=== PATIENT | male | born 1960 | race Caucasian/White ===

== ENCOUNTER 2016-09-13 12:06 | Inpatient (IN) | payer OTHER ==
[2016-09-13] VITALS (14 sets, daily range): BP systolic 81–141; BP diastolic 64–80
[~2016-09-13] VITALS: Ht 175.3 cm; Wt 68.7 kg
[2016-09-13] MEDS ORDERED: DILTIAZEM IV PUSH 25 MG/5 ML VIAL. ONE (12:17)
[2016-09-13] MEDS ORDERED: DILTIAZEM IV PUSH 25 MG/5 ML VIAL. IVP ONE (12:30)
[2016-09-13] MEDS ORDERED: ENOXAPARIN ** NOTE DOSE ** SYRINGE SQ ONE (12:30)
[2016-09-13] MEDS ORDERED: IV NORMAL SALINE 1000ML BAG 1,000 ML IV ONE (12:30)
[2016-09-13] MEDS ORDERED: DILTIAZEM 125 MG in IV DEXTROSE 5% 100 ML IV PRN (12:30)
[2016-09-13 12:31] LABS: BASO % 1 % (0-3); EOS % 3 % (0-3); HEMATOCRIT 45.8 % (39.0-53.0); HEMOGLOBIN 14.8 g/dL (13.0-17.5); LYMPH # 1.9 x10^3/uL (1.0-4.8); LYMPH % 38 % (24-48); MEAN CORPUSCULAR HEMOGLOBIN 28 pg (25-35); MEAN CORPUSCULAR HGB CONC 32 g/dL (31-37); MEAN CORPUSCULAR VOLUME 87 fL (79-100); MONO % 9 % (0-9); NEUT % 49 % (31-73); PLATELET COUNT 159 x10^3/uL (140-400); RED BLOOD COUNT 5.28 x10^6/uL (4.30-5.70); RED CELL DISTRIBUTION WIDTH 14.5 % (11.5-14.5)
--- NOTE | 2016-09-13 12:40 | RAD ---
Portable chest, 09/13/2016: History: Shortness of breath No previous chest radiographs are available at this time for comparison purposes. The heart is at the upper limits of normal in size. There is moderate interstitial prominence in the lung bases. No consolidating infiltrate is seen. There is no evidence of pleural fluid. Moderate spurring is present in the spine. IMPRESSION: 1. Borderline cardiomegaly. 2. Moderate basilar interstitial prominence suggesting interstitial pulmonary edema versus fibrosis. Comparison with previous chest radiographs if available and/or radiographic follow-up is suggested
[2016-09-13 12:46] LABS: CALCIUM 8.9 mg/dL (8.5-10.1); CREATININE 0.8 mg/dL (0.7-1.3); POTASSIUM 4.4 mmol/L (3.5-5.1)
[2016-09-13 12:50] LABS: ALBUMIN 3.1 g/dL (3.4-5.0); ALBUMIN/GLOBULIN RATIO 0.9 (1.0-1.7); TOTAL BILIRUBIN 0.7 mg/dL (0.2-1.0); TOTAL PROTEIN 6.4 g/dL (6.4-8.2)
--- NOTE | 2016-09-13 12:51 | EKG ---
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
--- NOTE | 2016-09-13 12:55 | PHYS DOC ---
Past Medical History Past Medical History: No Pertinent History Past Surgical History: No Surgical History Additional Information: SMOKES 10 TO 15 BLACK & MILDS A DAY Alcohol Use: Occasionally Drug Use: None Adult General Chief Complaint Chief Complaint: SHORTNESS OF BREATH HPI HPI 55-year-old male with no significant past medical history presents with a two- week history of shortness of breath and dyspnea on exertion. He denies any chest pain shortness of breath or palpitations. He states he's been unable to work however he states this is very difficult secondary to shortness of breath. He states he does smoke 10-15 cigarettes daily. He's had no fever chills sweats cough or congestion. He states the only way his symptoms feel better is if he remains still. [] Review of Systems Review of Systems Constitutional: Denies fever or chills [] Eyes: Denies change in visual acuity, redness, or eye pain [] HENT: Denies nasal congestion or sore throat [] Respiratory: Per history of present illness [] Cardiovascular: No additional information not addressed in HPI [] GI: Denies abdominal pain, nausea, vomiting, bloody stools or diarrhea [] : Denies dysuria or hematuria [] Musculoskeletal: Denies back pain or joint pain [] Integument: Denies rash or skin lesions [] Neurologic: Denies headache, focal weakness or sensory changes [] Endocrine: Denies polyuria or polydipsia [] Current Medications Current Medications Current Medications Medications (Trade) Dose Ordered Sig/Katelyn Start Time Stop Time Status Last Admin Dose Admin Diltiazem HCl 20 mg 20 mg 1X ONCE 09/13/16 12:30 09/13/16 12:31 DC 09/13/16 12:25 20 MG Diltiazem HCl 25 mg 25 mg STK-MED ONCE 09/13/16 12:17 09/13/16 12:18 DC Diltiazem HCl/ Dextrose (Cardizem) 125 ml @ 0 mls/hr CONT PRN 09/13/16 12:30 09/13/16 12:30 5 MLS/HR Enoxaparin Sodium (Lovenox 80mg Syringe) 80 mg 1X ONCE 09/13/16 12:30 09/13/16 12:35 DC Sodium Chloride (Iv Sodium Chloride 0.9% 1000ml Bag) 1,000 ml @ 1,000 mls/hr 1X ONCE 09/13/16 12:30 09/13/16 13:29 09/13/16 12:23 1,000 MLS/HR Allergies Allergies Allergies Coded Allergies Type Severity Reaction Last Updated Verified No Known Drug Allergies 09/11/15 No Physical Exam Physical Exam Constitutional: Well developed, well nourished, no acute distress, non-toxic appearance. [] HENT: Normocephalic, atraumatic, bilateral external ears normal, oropharynx moist, no oral exudates, nose normal. [] Eyes: PERRLA, EOMI, conjunctiva normal, no discharge. [] Neck: Normal range of motion, no tenderness, supple, no stridor. [] Cardiovascular: Tachycardia irregularly irregular [] Lungs & Thorax: Bilateral breath sounds clear to auscultation [] Abdomen: Bowel sounds normal, soft, no tenderness, no masses, no pulsatile masses. [] Skin: Warm, dry, no erythema, no rash. [] Back: No tenderness, no CVA tenderness. [] Extremities: No tenderness, no cyanosis, no clubbing, ROM intact, no edema. [] Neurologic: Alert and oriented X 3, normal motor function, normal sensory function, no focal deficits noted. [] Psychologic: Affect normal, judgement normal, mood normal. [] Current Patient Data Vital Signs Vital Signs Date Time Temp Pulse Resp B/P Pulse Ox O2 Delivery O2 Flow Rate FiO2 09/13/16 12:25 161 134/90 09/13/16 12:09 98 14 96 Room Air 98.0 Lab Values Laboratory Tests Test 09/13/16 12:16 White Blood Count 5.0x10^3/uL (4.0-11.0) Red Blood Count 5.28x10^6/uL (4.30-5.70) Hemoglobin 14.8g/dL (13.0-17.5) Hematocrit 45.8% (39.0-53.0) Mean Corpuscular Volume 87fL (79-100) Mean Corpuscular Hemoglobin 28pg (25-35) Mean Corpuscular Hemoglobin Concent 32g/dL (31-37) Red Cell Distribution Width 14.5% (11.5-14.5) Platelet Count 159x10^3/uL (140-400) Neutrophils (%) (Auto) 49% (31-73) Lymphocytes (%) (Auto) 38% (24-48) Monocytes (%) (Auto) 9% (0-9) Eosinophils (%) (Auto) 3% (0-3) Basophils (%) (Auto) 1% (0-3) Neutrophils # (Auto) 2.5x10^3uL (1.8-7.7) Lymphocytes # (Auto) 1.9x10^3/uL (1.0-4.8) Monocytes # (Auto) 0.5x10^3/uL (0.0-1.1) Eosinophils # (Auto) 0.2x10^3/uL (0.0-0.7) Basophils # (Auto) 0.0x10^3/uL (0.0-0.2) Sodium Level 144mmol/L (136-145) Potassium Level 4.4mmol/L (3.5-5.1) Chloride Level 109mmol/L (98-107) H Carbon Dioxide Level 25mmol/L (21-32) Anion Gap 10 (6-14) Blood Urea Nitrogen 14mg/dL (8-26) Creatinine 0.8mg/dL (0.7-1.3) Estimated GFR (Cockcroft-Gault) 100.0 BUN/Creatinine Ratio 18 (6-20) Glucose Level 177mg/dL (70-99) H Calcium Level 8.9mg/dL (8.5-10.1) Total Bilirubin Pending Aspartate Amino Transferase (AST) Pending Alanine Aminotransferase (ALT) Pending Alkaline Phosphatase Pending Total Protein Pending Albumin Pending Albumin/Globulin Ratio Pending Ethyl Alcohol Level < 10mg/dL (0-10) Laboratory Tests 09/13/16 12:16 Laboratory Tests 09/13/16 12:16 EKG EKG [EKG: Atrial fibrillation with rapid ventricular response rate in the 160s] Radiology/Procedures Radiology/Procedures [] Impressions: PROCEDURE: CHEST AP ONLY Portable chest, 09/13/2016: History: Shortness of breath No previous chest radiographs are available at this time for comparison purposes. The heart is at the upper limits of normal in size. There is moderate interstitial prominence in the lung bases. No consolidating infiltrate is seen. There is no evidence of pleural fluid. Moderate spurring is present in the spine. IMPRESSION: 1. Borderline cardiomegaly. 2. Moderate basilar interstitial prominence suggesting interstitial pulmonary edema versus fibrosis. Comparison with previous chest radiographs if available and/or radiographic follow-up is suggested Course & Med Decision Making Course & Med Decision Making Pertinent Labs and Imaging studies reviewed. (See chart for details) [ED course: Evaluation reveals 55-year-old male in mild to moderate respiratory distress secondary to an underlying atrial fibrillation. His atrial fibrillation with rapid ventricular response was treated with Cardizem 20 mg IV bolus and followed by a Cardizem drip at 5 mg per hour. This did decrease his rate didn't significantly reduce his symptomology. I spoke with Dr. Steph bach who agreed to accept the patient for admission. We will consult cardiology to help with the management of this patient. CRITICAL CARE time was 30 minutes - time exclusive of any procedures performed. Care included medical management, x-ray/lab interpretation, discussions with the patient and their family as well as appropriate medical consultants.] Dragon Disclaimer Dragon Disclaimer This electronic medical record was generated, in whole or in part, using a voice recognition dictation system. Departure Departure Impression: Primary Impression: Atrial fibrillation with rapid ventricular response Admitting Physician: Andrea Drummond Condition: GUARDED Referrals: BLAYNE ESCOBAR MD (PCP) TRAVIS SOLORZANO DO Sep 13, 2016 12:55
[2016-09-13] MEDS ORDERED: ONDANSETRON PF 4 MG/2 ML VIAL. IV PRN (13:00)
[2016-09-13] MEDS ORDERED: FUROSEMIDE 40 MG/4 ML VIAL IVP ONE (13:00)
[2016-09-13 13:07] LABS: INR 1.1 (0.8-1.1); PROTHROMBIN TIME PATIENT 13.8 SEC (11.7-14.0)
--- NOTE | 2016-09-13 14:08 | ACF ---
Admission Forms Criteria ATRIAL FIBRILLATION Clinical Indications for Admission to Inpatient Care (Place 'X' for any and all applicable criteria): Admission indicated for ANY ONE of the following(1)(2)(3)(4)(5) : [ ]I. Myocardial ischemia [X ]II. Dyspnea or hypoxemia [X ]III. Hemodynamic instability [ ]IV. Heart failure (e.g., pulmonary edema) (7) [ ]V. New-onset (less than 48 hours) atrial fibrillation with high risk for causing complications secondary to comorbidities (eg, symptomatic heart failure ) [ ]. Altered mental status [ ]VII. Syncope [ ]VIII. Patient has implantable cardioverter defibrillator that has fired more than once within past 24hr or needs immediate adjustment of settings that cannot be done other than in inpatient setting. (8) [ ]IX. Suspected accessory pathway (e.g., Neaog-Lhqqxdvuu-Lelhr syndrome) on ECG [ ]X. Recent systemic thromboembolism (eg, stroke) [ ]XI. Medication toxicity (e.g., digitalis) causing arrhythmia(9) [ ]XII. Underlying medical condition that necessitates inpatient care (e.g., thyrotoxicosis, pneumonia) (10) [ ]XIII. Continuous ECG monitoring is required for condition causing arrhythmia (e.g., severe hyperkalemia, hypokalemia, acid-base disturbance).(11)(12)(13) [ ]XIV. Initiation of antiarrhythmic drug therapy is needed in patient at high risk of adverse effects as indicated by ANY ONE of the following: [ ]a) Significant structural heart disease (e.g., reduced ejection fraction, congenital heart disease, valvular heart disease) [ ]b) Prolonged QT interval [ ]c) Underlying sinus node or atrioventricular conduction disturbances [ ]d) Need for treatment with antiarrhythmic drugs that have significant proarrhythmic potential (e.g., dofetilide, sotalol, procainamide) [ ]e) Patient whose sinus rhythm has never been observed on ECG [ ]XV. Intolerable symptoms despite optimal outpatient treatment [ ]XVI. Elective or urgent cardioversion that cannot be performed on outpatient basis or during observation care. [A] (Use also Atrial Fibrillation: Observation Care ) as appropriate.(14) [ ]XVII.Contraindications and/or Inappropriate clinical situations for Observational Care in patients with Atrial Fibrillation, when ANY ONE of the following is required: [ ]a) Patient with High risk of cardiac embolism (e.g, patients with previous cardiac embolism, LVEF < 40%, age >75 and patients with prosthetic valve) 18 [ ]b) Patient with Moderate risk including DM patient, CAD and patient aged 65-75 18 [ ]c) Patient with any change in cardiac biomarker especially troponin should be managed as high risk in an inpatient setting 19 [ ]d) Physician judgement irrespective of ECG and other diagnostic findings 20 [ ]XVIII.General contraindications and/or Inappropriate clinical situations for Observational Care in patients with Atrial Fibrillation, when ANY ONE of the following is required: [ ]a) Prediction of prolongation of LOS based on ANY ONE of the following may be considered as a contraindication for observational care 2, 3, 4, 5, 6, 7, 8, 9, 10, 11 [ ]i) Age > 65 yrs. [ ]ii) Patient arriving by ambulance [ ]iii) Patient with high acuity [ ]iv) Patient requiring vital sign monitoring [ ]v) Patient on IV medication [ ]b) Systolic blood pressures 180mmHg 3,12 [ ]c) Patient with altered mental status including delirium and other alteration of consciousness3 [ ]d) Patient whose discharge disposition will be to a care home home or rehabilitation home should not be managed in Emergency Department Observation Unit. CMS rule requires 3 days hospital stay before such placement.3,13 [ ]e) Patient with failure to thrive due to broad array of etiologies 3,16,17 [ ]f) Inability to ambulate 3,14 Extended stay beyond goal length of stay may be needed for (1)(25)(26): [ ]a) Unstable comorbidities [ ]b) Persistently uncontrolled atrial fibrillation or other arrhythmias [ ]c) Acute thromboembolic event (e.g., stroke, limb ischemia) [ ]d) Need for inpatient attainment of full anticoagulation The original [employer] content created by [employer] has been revised. The portions of the content which have been revised are identified through the use of italic text or in bold, and [employer] has neither reviewed nor approved the modified material. All other unmodified content is copyright [employer]. Please see references footnoted in the original [facility] edition 2016 Admission Criteria Met?: Yes ZOHAIB BAKER Sep 13, 2016 14:08
[2016-09-13 14:42] LABS: BILIRUBIN,URINE NEGATIVE (NEG); GLUCOSE,URINE 250 mg/dL (NEG); NITRITE,URINE NEGATIVE (NEG); PROTEIN,URINE NEGATIVE (NEG-TRACE); UROBILINOGEN,URINE 0.2 mg/dL (0.2 mg/dL)
[2016-09-13 14:44] LABS: BARBITURATES NEG (NEG); BENZODIAZEPINES NEG (NEG); CANNABINOIDS NEG (NEG); COCAINE NEG (NEG); METHADONE NEG (NEG); OPIATES NEG (NEG); PHENCYCLIDINE NEG (NEG)
[2016-09-13 14:52] LABS: ETHANOL, URINE NEG (NEG)
[2016-09-13 15:11] LABS: BACTERIA,URINE 0 /HPF (0-FEW); RBC,URINE OCC /HPF (0-2); WBC,URINE OCC /HPF (0-4)
[2016-09-14] VITALS (15 sets, daily range): BP systolic 95–123; BP diastolic 56–84
--- NOTE | 2016-09-14 09:10 | PDOC ---
Provider Note Provider Note [id number] BLAYNE ESCOBAR MD Sep 14, 2016 09:10
--- NOTE | 2016-09-14 09:10 | PDOC2 ---
CARDIAC CONSULT DATE OF CONSULT Date of Consult DATE: 09/14/16 TIME: 09:09 REASON FOR CONSULT Reason for Consult: atrial fib with RVR REFERRING PHYSICIAN Referring Physician: Dr. Arnie Bradley SOURCE Source: Chart review, Patient HISTORY OF PRESENT ILLNESS HISTORY OF PRESENT ILLNESS 55 year old male who presented to ER with 2 week history of dyspnea that is worse with exertion. No associated chest pain or pressure, palpitations , dizziness, lightheadedness or lower extremity edema. Found to be in atrial fib with RVR in ER and bolused with IV diltiazem and then started on gtt. Also given IV furosemide as NT-proBNP elevated and CXR suggestive of pulmonary edema. Improved rate control overnight on diltiazem. TSH found to be < 0.007. Reason for Visit: atrial fib PAST MEDICAL HISTORY Cardiovascular: No pertinent hx Pulmonary: No pertinent hx CENTRAL NERVOUS SYSTEM: Other (none) GI: No pertinent hx Heme/Onc: No pertinent hx Hepatobiliary: No pertinent hx Psych: No pertinent hx Musculoskeletal: Other (none) Rheumatologic: No pertinent hx Infectious disease: No pertinent hx ENT: No pertinent hx Renal/: No pertinent hx Endocrine: No pertinent hx Dermatology: No pertinent hx PAST SURGICAL HISTORY Past Surgical History: No pertinent history FAMILY HISTORY Family History: Coronary Artery Disease (brother with PR - age 60), Diabetes SOCIAL HISTORY Social History smokes 10 cigars/day; 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 ALCOHOL: other (beer weekly) Drugs: Other (remote history ) CURRENT MEDICATIONS CURRENT MEDICATIONS Current Medications Medications (Trade) Dose Ordered Sig/Katelyn Route PRN Reason Start Time Stop Time Status Last Admin Dose Admin Diltiazem HCl/ Dextrose (Cardizem) 125 ml @ 0 mls/hr CONT PRN IV SEE I/O RECORD 09/13/16 12:30 09/14/16 09:06 DC 09/13/16 12:30 Diltiazem HCl 20 mg 20 mg 1X ONCE IVP 09/13/16 12:30 09/13/16 12:31 DC 09/13/16 12:25 Sodium Chloride (Iv Sodium Chloride 0.9% 1000ml Bag) 1,000 ml @ 1,000 mls/hr 1X ONCE IV 09/13/16 12:30 09/13/16 13:29 DC 09/13/16 12:23 Enoxaparin Sodium (Lovenox 80mg Syringe) 80 mg 1X ONCE SQ 09/13/16 12:30 09/13/16 12:35 DC 09/13/16 12:58 Furosemide (Lasix) 40 mg 1X ONCE IVP 09/13/16 13:00 09/13/16 13:10 DC 09/13/16 13:43 ALLERGIES ALLERGIES: Coded Allergies: No Known Drug Allergies (Unverified , 09/11/15) ROS Review of System 14 point review completed with pertinent positives in HPI PHYSICAL EXAM General: Alert, Oriented X3, Cooperative, No acute distress, Other (appears unkempt) HEENT: Atraumatic, PERRLA Lungs: Other (basilar crackles) Heart: Normal S1, Normal S2, Other (IRRR; tele: atrial fib - rates in the 90s) Extremities: Normal pulses, Other (edema left hand) Skin: No rashes Psych/Mental Status: Mental status NL, Mood NL MUSCULOSKELETAL: No deformity VITALS VITALS Vital Signs Date Time Temp Pulse Resp B/P Pulse Ox O2 Delivery O2 Flow Rate FiO2 09/14/16 07:53 Nasal Cannula 4.0 09/14/16 06:19 100 106/64 94 09/14/16 04:07 98.5 98.5 09/14/16 03:32 20 LABS Lab: Laboratory Tests Test 09/13/16 12:16 09/13/16 13:58 09/13/16 18:45 09/14/16 01:24 White Blood Count 5.0x10^3/uL (4.0-11.0) Red Blood Count 5.28x10^6/uL (4.30-5.70) Hemoglobin 14.8g/dL (13.0-17.5) Hematocrit 45.8% (39.0-53.0) Mean Corpuscular Volume 87fL (79-100) Mean Corpuscular Hemoglobin 28pg (25-35) Mean Corpuscular Hemoglobin Concent 32g/dL (31-37) Red Cell Distribution Width 14.5% (11.5-14.5) Platelet Count 159x10^3/uL (140-400) Neutrophils (%) (Auto) 49% (31-73) Lymphocytes (%) (Auto) 38% (24-48) Monocytes (%) (Auto) 9% (0-9) Eosinophils (%) (Auto) 3% (0-3) Basophils (%) (Auto) 1% (0-3) Neutrophils # (Auto) 2.5x10^3uL (1.8-7.7) Lymphocytes # (Auto) 1.9x10^3/uL (1.0-4.8) Monocytes # (Auto) 0.5x10^3/uL (0.0-1.1) Eosinophils # (Auto) 0.2x10^3/uL (0.0-0.7) Basophils # (Auto) 0.0x10^3/uL (0.0-0.2) Prothrombin Time 13.8SEC (11.7-14.0) Prothromb Time International Ratio 1.1 (0.8-1.1) D-Dimer (Sania) 1.18ug/mlFEU (0.00-0.50) Sodium Level 144mmol/L (136-145) Potassium Level 4.4mmol/L (3.5-5.1) Chloride Level 109mmol/L (98-107) Carbon Dioxide Level 25mmol/L (21-32) Anion Gap 10 (6-14) Blood Urea Nitrogen 14mg/dL (8-26) Creatinine 0.8mg/dL (0.7-1.3) Estimated GFR (Cockcroft-Gault) 100.0 BUN/Creatinine Ratio 18 (6-20) Glucose Level 177mg/dL (70-99) Calcium Level 8.9mg/dL (8.5-10.1) Total Bilirubin 0.7mg/dL (0.2-1.0) Aspartate Amino Transf (AST/SGOT) 35U/L (15-37) Alanine Aminotransferase (ALT/SGPT) 32U/L (16-63) Alkaline Phosphatase 147U/L (46-116) Troponin I Quantitative 0.020ng/mL (0.000-0.055) 0.037ng/mL (0.000-0.055) 0.028ng/mL (0.000-0.055) AG-Voj-V-Type Natriuretic Peptide 3688pg/mL (0-124) Total Protein 6.4g/dL (6.4-8.2) Albumin 3.1g/dL (3.4-5.0) Albumin/Globulin Ratio 0.9 (1.0-1.7) Ethyl Alcohol Level < 10mg/dL (0-10) Urine Collection Type Unknown Urine Color Yellow Urine Clarity Clear Urine pH 5.0 Urine Specific [place] 1.015 Urine Protein Negativemg/dL (NEG-TRACE) Urine Glucose (UA) 250mg/dL (NEG) Urine Ketones (Stick) Negativemg/dL (NEG) Urine Blood Negative (NEG) Urine Nitrite Negative (NEG) Urine Bilirubin Negative (NEG) Urine Urobilinogen Dipstick 0.2mg/dL (0.2 mg/dL) Urine Leukocyte Esterase Negative (NEG) Urine RBC Occ/HPF (0-2) Urine WBC Occ/HPF (0-4) Urine Squamous Epithelial Cells None/LPF Urine Bacteria 0/HPF (0-FEW) Urine Mucus Slight/LPF Urine Opiates Screen Neg (NEG) Urine Methadone Screen Neg (NEG) Urine Barbiturates Neg (NEG) Urine Phencyclidine Screen Neg (NEG) Urine Amphetamine/Methamphetamine Neg (NEG) Urine Benzodiazepines Screen Neg (NEG) Urine Cocaine Screen Neg (NEG) Urine Cannabinoids Screen Neg (NEG) Urine Ethyl Alcohol Neg (NEG) Thyroid Stimulating Hormone (TSH) < 0.007uIU/mL (0.358-3.74) IMAGES IMAGES CXR: 1. Borderline cardiomegaly. 2. Moderate basilar interstitial prominence suggesting interstitial pulmonary edema versus fibrosis. Comparison with previous chest radiographs if available and/or radiographic follow-up is suggested EKG EKG initial EKG was SR; then atrial fib with RVR ASSESSMENT/PLAN ASSESSMENT/PLAN 1. atrial fib with RVR in the setting of hyperthyroidism rate control with diltiazem with conversion to atenolol pending OAC with Eliquis for stroke prevention until hyperthyroidism well treated and pt converts back to SR echo pending to evaluate for valvular disease check Mg 2. acute CHF likely rate related given furosemide in ER still with crackles - furosemide 20 mg X 1 today 2. hyperthyroidism evaluation in progress tapazole to be started 3. elevated D-Dimer suspect related to rate echo will evaluate RV size and pressures - if elevated - recommend CT scan of chest to evaluate for pulmonary embolus 4. tobacco abuse 10 cigars per day Problems: FLORENTINO OAKES APRN Sep 14, 2016 09:10
[2016-09-14] MEDS ORDERED: DILTIAZEM 125 MG in IV DEXTROSE 5% 100 ML IV PRN (09:15)
--- NOTE | 2016-09-14 09:48 | HP ---
ADMIT DATE: 09/13/2016 CHIEF COMPLAINT: Shortness of breath. HISTORY OF PRESENT ILLNESS: A 55-year-old white male with no significant medical history, has had increasing shortness of breath over the last 2 weeks. He is unaware of rapid heartbeat or irregular heartbeat, weight loss, fever or diarrhea, tremors or any other specific symptoms. He was found to have an atrial fibrillation with rapid response in the ER and TSH was requested after admission and was found to be very low. He has been on IV Cardizem with relatively low dose control and the rate, but still in atrial fibrillation. PAST HISTORY: Seen one year ago and had an elevated testosterone level, but he denied exogenous use and etiology was never found and not repeated. MEDICATIONS: None. ALLERGIES: None. SURGERY: None. SOCIAL HISTORY: He smokes 10 cigars a day. He is a very light drinker. He is employed by [employer]. He is . FAMILY HISTORY: Unremarkable for cardiovascular or cancer. REVIEW OF SYSTEMS: No other complaints. Denies weight loss, etc. OBJECTIVE: ENT: No proptosis or exophthalmos is noted. Eyes, ears and pharynx normal. NECK: Revealed no palpable thyroid enlargement, masses or nodes. LUNGS: Clear. CARDIOVASCULAR: Irregular rate, rate is about 90. No murmur or S3 is heard. ABDOMEN: Soft, benign and nontender. EXTREMITIES: Good pedal and radial pulses. Mild clubbing. No tremor is noted. NEUROLOGIC AND PHYSIOLOGIC: No tremors, nonfocal, oriented x 4. Gait not tested. ASSESSMENT: Atrial fibrillation, rapid ventricular response in a smoker. He appears to be hyperthyroid, etiology and duration of which is unknown. This is likely the etiology for the atrial fibrillation. PLAN: Thyroid scan and uptake to assess for Graves' disease versus acute thyroiditis. We will start atenolol and methimazole after scans are done. BLAYNE ESCOBAR MD DR: LENIN/hanna JOB#: [id number] / [id number]
[2016-09-14 09:55] LABS: FREE T4 5.04 ng/dL (0.76-1.46)
[2016-09-14] MEDS ORDERED: MAGNESIUM SULFATE 2GM 50 ML IV ONE (10:00)
[2016-09-14] MEDS: FUROSEMIDE 20 MG/2 ML VIAL IVP SCH (10:31)
[2016-09-14] MEDS: ATENOLOL 50 MG TABLET PO SCH (10:34)
[2016-09-14] MEDS: APIXABAN 5 MG TABLET. PO SCH ×2 (10:40→21:19)
[2016-09-14] MEDS ORDERED: METHIMAZOLE 10 MG TABLET PO SCH (14:00)
--- NOTE | 2016-09-14 14:13 | CARD ---
APPROVED REPORT EXAM: Two-dimensional and M-mode echocardiogram with Doppler and color Doppler. Other Information Quality : Good Rhythm : Atrial Fibrillation INDICATION Atrial Fibrillation 2D DIMENSIONS RVDd2.9 (2.9-3.5cm)Left Atrium(2D)4.8 (1.6-4.0cm) IVSd1.3 (0.7-1.1cm)Aortic Root(2D)3.1 (2.0-3.7cm) LVDd5.3 (3.9-5.9cm)LVOT Diameter2.0 (1.8-2.4cm) PWd1.3 (0.7-1.1cm)LVDs4.3 (2.5-4.0cm) FS (%) 20.0 % Aortic Valve AoV Peak Valentino.164.8cm/sAoV VTI22.7cm AO Peak GR.10.9mmHgLVOT VTI 14.38cm AO Mean GR.6mmHgAVA (VTI)2.00cm2 Mitral Valve MV E Exyqzaue680.2cm/sMV DECEL [id number] TDI Lateral E' P. V11.78cm/sMedial E' P. V7.27cm/s E/Lateral E'12.2E/Medial E'19.8 Tricuspid Valve TR P. Yzeqcjdt702wy/sRAP QJKVDSBZ18igMm TR Peak Gr.97ieHrFCLV84ngGy LEFT VENTRICLE The left ventricle is normal size. There is mild concentric left ventricular hypertrophy. Left ventri cular systolic function is low normal to mildly decreased. The Ejection Fraction is 45-50%. There are no regional wall motion abnormalities. RIGHT VENTRICLE The right ventricle is normal size. The right ventricular systolic function is normal. ATRIA The left atrium is mildly dilated. The right atrium is mildly dilated. The interatrial septum is inta ct with no evidence for an atrial septal defect or patent foramen ovale as noted on 2-D or Doppler im aging. AORTIC VALVE The aortic valve is calcified but opens well. Doppler and Color Flow revealed no significant aortic r egurgitation. There is no significant aortic valvular stenosis. MITRAL VALVE The mitral valve is calcified but opens well. There is no evidence of mitral valve prolapse. There is no mitral valve stenosis. Doppler and Color-flow revealed mild mitral regurgitation. TRICUSPID VALVE The tricuspid valve is normal in structure and function. Doppler and Color Flow revealed mild tricusp id regurgitation. The PA pressure was estimated at 46 mmHg. There is no tricuspid valve stenosis. PULMONIC VALVE The pulmonary valve is normal in structure and function. Doppler and Color Flow revealed trace pulmon ic valvular regurgitation. There is no pulmonic valvular stenosis. GREAT VESSELS The aortic root is normal in size. The ascending aorta is not well seen. The IVC is dilated and colla pses <50% with inspiration. PERICARDIAL EFFUSION There is a left pleural effusion. There is no evidence of significant pericardial effusion. Critical Notification Critical Value: No <Conclusion> The left ventricle is normal size. Left ventricular systolic function is low normal to mildly decreased. The Ejection Fraction is 45-50%. There is mild concentric left ventricular hypertrophy. There are no regional wall motion abnormalities. The right atrium is mildly dilated. There is no significant aortic valvular stenosis. Doppler and Color Flow revealed no significant aortic regurgitation. Doppler and Color-flow revealed mild mitral regurgitation. Doppler and Color Flow revealed mild tricuspid regurgitation. The PA pressure was estimated at 46 mmHg.
[2016-09-14] MEDS ORDERED: CONTRAST GIVEN MC PRN (16:00)
[2016-09-14] MEDS ORDERED: IOHEXOL 240 MG/ML 50ML VIAL. PO ONE (16:00)
[2016-09-14] MEDS ORDERED: IOHEXOL 300 MG/ML 75 ML VIAL IV ONE (16:15)
--- NOTE | 2016-09-14 18:20 | RAD ---
PROCEDURE CTA of the chest with contrast (pulmonary embolism protocol) 09/14/2016 HISTORY Shortness of breath for 2 weeks. TECHNIQUE After the intravenous administration of 75 cc of Omnipaque 300, contiguous, 0.625 millimeter axial sections were obtained through the chest. 2 millimeter reconstructed axial and 3D MIP sagittal and coronal reconstructed images were obtained. One or more of the following individualized dose reduction techniques were utilized for this study: 1. Automated exposure control. 2. Adjustment of the mA and/or kV according to patient size. 3. Use of iterative reconstruction technique. FINDINGS No filling defect is seen within the major branches of either pulmonary artery. There is no CT evidence of pulmonary embolism. The heart is mildly enlarged. Mild atherosclerotic calcification of the thoracic aorta and its branches is noted. The thoracic aorta tapers normally. Scattered coronary artery calcifications are seen. Calcified left hilar and mediastinal lymph nodes are noted. Enlarged mediastinal lymph nodes are seen which measure 1 centimeter to 2.5 centimeters in size. There are small to moderate-sized bilateral pleural effusions, right greater than left. Bilateral lower lobe atelectasis and/or infiltrate, right greater than left is seen. Subsegmental atelectasis is seen involving the inferior aspect of the lingula and right middle lobe. No pneumothorax is noted. IMPRESSION 1. There is no CT evidence of pulmonary embolism. 2. Cardiomegaly with small to moderate-sized bilateral pleural effusions, right greater than left. Bilateral lower lobe atelectasis and/or infiltrate, right greater than left is seen. Electronically signed by: Brad Bucio MD (Sep 14, 2016 18:18:52)
[2016-09-15 04:00] VITALS: BP 128/77
[2016-09-15 08:00] VITALS: BP 125/77
[2016-09-15] MEDS ORDERED: ANTI-COAG MONITOR BY PHARMACY. MC PRN (08:15)
[2016-09-15] MEDS: APIXABAN 5 MG TABLET. PO SCH (08:36)
[2016-09-15] MEDS: FUROSEMIDE 20 MG/2 ML VIAL IVP SCH (08:36)
[2016-09-15] MEDS: ATENOLOL 50 MG TABLET PO SCH (08:42)
--- NOTE | 2016-09-15 09:04 | PDOC ---
Provider Note Provider Note rate 100-133 irreg- vss- both T4/T3 very high, cons w/ graves- thyroid scan today , then start methimazole- increase atenolol now re rate control- echo noted BLAYNE ESCOBAR MD Sep 15, 2016 09:04
[2016-09-15] MEDS ORDERED: ATENOLOL 50 MG TABLET PO ONE (09:30)
--- NOTE | 2016-09-15 11:36 | PDOC ---
SARITHA SANTANA RAIL SIGNAL MECHANIC 09/15/16 1136: CARDIO Progress Notes Date and Time Date of Service 09/15/2016 Time of Evaluation 1040 Subjective Subjective: No Chest Pain, No shortness of breath, No Palpitations, No Dizziness, Other (feels better today) Vitals Vitals Vital Signs Date Time Temp Pulse Resp B/P Pulse Ox O2 Delivery O2 Flow Rate FiO2 09/15/16 10:05 97 125/77 09/15/16 08:00 Room Air 09/15/16 08:00 98.5 19 98 98.5 09/15/16 04:00 3.0 Weight Weight [ ] Input and Output Intake and Output Intake and Output 09/15/16 07:00 Intake Total 2207 ml Output Total 1875 ml Balance 332 ml Intake Oral 2145 ml IV Total 62 ml Output Urine Total 1875 ml Physical Exam HEENT: Neck Supple W Full Motion Chest: Symmetric LUNGS: Other (faint bibasilar crackles) Heart: S1S2, irregularly irregular Abdomen: Soft N/T Extremities: No Calf Tenderness, Other (1+ bilateral LE pitting edema) Neurology: alert, oriented, follow commands Assessment Assessment 1. atrial fib with RVR in the setting of hyperthyroidism Rate controlled with atenolol. Will continue with rate control for now till thyroid dysfunction is corrected. Once this is corrected then will consider for outpt cardioversion. Will hold eliquis if thyroid biopsy is warranted otherwise continue. OAC with Eliquis for stroke prevention until hyperthyroidism well treated and pt converts back to SR 2. Acute systolic CHF Likely induced by above. TTE noted with mild LV systolic dysfunction, no wall motion abnormalities with EF of 45-45% with mild TR/MR and mod pulmonary HTN Clinically compensated. Convert IV lasix to PO. BMP Mg today. 3. Hyperthyroidism Thyroid scan pending tapazole to be started after scan per PCP 4. Elevated D-Dimer Notable for supporting symptoms of PE with moderate clinical probability CTA performed and reviewed. No notable PE. 5. CAD Noted via CT are cardiomegaly, mild atherosclerotic calcification of the thoracic aorta and its branches and scattered coronary artery calcifications are seen. Will consider for outpt stress test Avoid ASA for now as this may increase T4 to T3 conversion. Continue BB and start on low dose lisinopril. Obtain lipid panel. Continue with secondary prevention. 6. Mediastinal lymphadenopathy via CTA Enlarged mediastinal lymph nodes are seen which measure 1 centimeter to 2.5 centimeters in size. Per PCP 7. Likely undiagnosed COPD with tobacco abuse 10 cigars per day Smoking cessation JUAQUIN TOSCANO MD 09/15/16 1532: CARDIO Progress Notes Plan Plan Patient seen and examined. Agree with nurse practitioner. No acute events overnight. Patient is currently being evaluated for hyperthyroidism Cardiac examination reveals irregular heart rates with bilateral end expiratory wheezing. Laboratory studies reviewed. Medications reviewed. Continue supportive care from a cardiovascular perspective. We will hold his anticoagulation in case he has a nodule that needs to be biopsied but if his thyroid scan reveals Graves' disease then we will continue his anticoagulation. We will follow-up with him tomorrow. Anticipate outpatient evaluation after control of hyperthyroidism for consideration of TAHMINA/cardioversion if he is not converted to sinus rhythm after treatment of hyperthyroidism. SARITHA SANTANA APRN Sep 15, 2016 11:36 JUAQUIN TOSCANO MD Sep 15, 2016 15:32
[2016-09-15 12:00] VITALS: BP 128/90
[2016-09-15 12:28] LABS: CALCIUM 8.7 mg/dL (8.5-10.1); CREATININE 0.7 mg/dL (0.7-1.3); GFR 116.7; MAGNESIUM 1.8 mg/dL (1.8-2.4); POTASSIUM 4.3 mmol/L (3.5-5.1)
[2016-09-15 12:34] LABS: CHOLESTEROL/HDL RATIO 2.9
--- NOTE | 2016-09-15 14:01 | RAD ---
24 hour I-131 uptake and scan, 09/15/2016: History: Hyperthyroidism The 24-hour I-131 uptake is 48.7% of the administered dose. That value is above the upper limits of normal 35%. Imaging of the gland was performed following IV injection of 15 mCi of technetium 99m pertechnetate. The gland appears to be mildly enlarged in a symmetric pattern. No hot or cold thyroid nodule is seen. IMPRESSION: Diffuse hyperfunctioning thyroid gland compatible with Graves' disease.
[2016-09-15 15:00] VITALS: BP 115/75
[2016-09-15] MEDS ORDERED: METHIMAZOLE 10 MG TABLET PO SCH (15:15)
[2016-09-15] MEDS ORDERED: METHIMAZOLE 10 MG TABLET PO ONE (16:00)
[2016-09-15] MEDS: METHIMAZOLE 10 MG TABLET PO SCH (17:59)
[2016-09-15 19:35] VITALS: BP 128/83
[2016-09-15 23:40] VITALS: BP 108/63
[2016-09-16 03:48] VITALS: BP 115/66
[2016-09-16 07:00] VITALS: BP 123/84
--- NOTE | 2016-09-16 09:14 | PDOC ---
Provider Note Provider Note vss, breathing better- rate [id number], af- exam same- on tapazole now as scan supports graves etiology- only jennifer 50 mg atenolo 09/15 despite 100 mg order, 100 mg today, likely dc in am if stable to follow labs as op- likely will convert to sr w/ tx BLAYNE ESCOBAR MD Sep 16, 2016 09:14
[2016-09-16] MEDS: LISINOPRIL 2.5 MG TABLET PO SCH (09:18)
[2016-09-16] MEDS: FUROSEMIDE 40 MG TABLET PO SCH (09:18)
[2016-09-16] MEDS: ATENOLOL 50 MG TABLET PO SCH (09:19)
[2016-09-16] MEDS: METHIMAZOLE 10 MG TABLET PO SCH ×3 (09:19→16:50)
[2016-09-16] MEDS: APIXABAN 5 MG TABLET. PO SCH ×2 (09:19→21:29)
[2016-09-16 10:53] VITALS: BP 120/83
--- NOTE | 2016-09-16 12:21 | PDOC ---
SARITHA SANTANA YEAST MAKER 09/16/16 1221: CARDIO Progress Notes Date and Time Date of Service 09/16/2016 Time of Evaluation 1000 Subjective Subjective: No Chest Pain, No Palpitations, No Dizziness, Other (still has episodes of PND; orthopnea otherwise no SOA at rest and going to the bathroom. ) Vitals Vitals Vital Signs Date Time Temp Pulse Resp B/P Pulse Ox O2 Delivery O2 Flow Rate FiO2 09/16/16 10:53 97.4 95 24 120/83 94 Room Air 97.4 Weight Weight [ ] Input and Output Intake and Output Intake and Output 09/16/16 07:00 Intake Total 500 ml Output Total 200 ml Balance 300 ml Intake Oral 500 ml Output Urine Total 200 ml # Voids 4 Physical Exam HEENT: Neck Supple W Full Motion Chest: Symmetric LUNGS: Other (bibasilar crackles) Heart: S1S2, irregularly irregular Abdomen: Soft N/T Extremities: No Calf Tenderness, Other (2+ bilateral LE pitting edema) Neurology: alert, oriented, follow commands Assessment Assessment 1. atrial fib with RVR in the setting of hyperthyroidism Rate controlled with atenolol at 90s with noted episodic bursts in the 120- 130s Will continue with rate control for now till thyroid dysfunction is corrected. Currently on high dose atenolol, will start on low dose cardizem IR temporarily for better control. NOAC with Eliquis for stroke prevention until hyperthyroidism is well treated and pt converts back to SR If no spontaneous conversion then will consider for outpt cardioversion. 2. Acute systolic CHF Mild symptoms overnight notable for orthopnea and PND otherwise currently no SOA. TTE noted with mild LV systolic dysfunction, no wall motion abnormalities with EF of 45-45% with mild TR/MR and mod pulmonary HTN CXR today. BMP. Continue with po lasix and will provide extra IV dose today. 3. Hyperthyroidism Thyroid scan compatible with Graves disease. Further w/u per PCP. tapazole has been restarted. 4. CAD Noted via CT are cardiomegaly, mild atherosclerotic calcification of the thoracic aorta and its branches and scattered coronary artery calcifications are seen. Will consider for outpt stress test Avoid ASA for now as this may increase T4 to T3 conversion. Continue BB and low dose lisinopril. Lipids on goal, no statin at this time. Monitor LFTs as outpt in relation to tapazole. Encourage to avoid ETOH. Continue with secondary prevention. 5. Mediastinal lymphadenopathy via CTA Enlarged mediastinal lymph nodes are seen which measure 1 centimeter to 2.5 centimeters in size. Per PCP 6. Likely undiagnosed COPD with tobacco abuse 10 cigars per day Smoking cessation JUAQUIN TOSCANO MD 09/16/16 1807: CARDIO Progress Notes Plan Plan Patient seen and examined. Case discussed with her practitioner. No acute events overnight. Continues to have paroxysmal bursts of rapid atrial fibrillation. No significant changes on cardio pulmonary examination. Labs reviewed and thyroid testing consistent with Graves. Continue supportive care from a cardiovascular perspective. Outpatient evaluation in 4 weeks. SARITHA SANTANA APRN Sep 16, 2016 12:21 JUAQUIN TOSCANO MD Sep 16, 2016 18:07
[2016-09-16 13:36] LABS: CALCIUM 8.6 mg/dL (8.5-10.1); CREATININE 0.8 mg/dL (0.7-1.3); POTASSIUM 4.2 mmol/L (3.5-5.1)
[2016-09-16] MEDS: DILTIAZEM HCL 30 MG TABLET PO SCH ×2 (13:53→21:28)
--- NOTE | 2016-09-16 13:54 | RAD ---
Indication: Tachycardia. Time of exam 1331 hours. Correlation is made with prior chest from 09/13/2016. The heart size is stable. Congestive changes have improved somewhat although there are small bilateral pleural effusions. Interstitial infiltrates have resolved. There is no pneumothorax. Impression: Resolution of interstitial edema and congestive change apart from some small bilateral pleural effusions when compared with exam from 3 days earlier.
[2016-09-16] MEDS ORDERED: FUROSEMIDE 40 MG TABLET PO ONE (14:45)
[2016-09-16 15:14] VITALS: BP 108/70
[2016-09-16 19:40] VITALS: BP 113/77
[2016-09-17] VITALS: BP 135/68
[2016-09-17 03:40] VITALS: BP 123/72
[2016-09-17] MEDS: DILTIAZEM HCL 30 MG TABLET PO SCH (06:17)
[2016-09-17 07:58] VITALS: BP 124/71
[2016-09-17 09:04] VITALS: BP 124/71
[2016-09-17] MEDS: APIXABAN 5 MG TABLET. PO SCH (09:04)
[2016-09-17] MEDS: METHIMAZOLE 10 MG TABLET PO SCH (09:04)
[2016-09-17] MEDS: ATENOLOL 50 MG TABLET PO SCH (09:04)
[2016-09-17] MEDS: LISINOPRIL 2.5 MG TABLET PO SCH (09:04)
[2016-09-17] MEDS: FUROSEMIDE 40 MG TABLET PO SCH (09:04)
--- NOTE | 2016-09-17 09:38 | DISCH ---
DISCHARGE INSTRUCTIONS Condition on Discharge Condition on Discharge: Stable Activity After Discharge Activity Instructions for Disc: No restrictions Diet after Discharge Diet after Discharge: Low Sodium 4 gm Follow-Up Follow up with: dr jody Palumbo w BLAYNE ESCOBAR MD Sep 17, 2016 09:38
--- NOTE | 2016-09-17 09:42 | PDOC ---
Provider Note Provider Note [id number] BLAYNE ESCOBAR MD Sep 17, 2016 09:42
[2016-09-17] MEDS ORDERED: METH10TA6 PO ×2 (10:03→10:04)
[2016-09-17] MEDS ORDERED: ATEN100T PO (10:04)
--- NOTE | 2016-09-17 18:36 | DS ---
DATE OF DISCHARGE: 09/17/2016 HOSPITAL SUMMARY: A 55-year-old white male who came in with shortness of breath and was found to have atrial fibrillation with rapid ventricular response. He is not aware how long symptoms have been present. Chest x-ray showed some borderline cardiomegaly and vascular congestion. CTA showed no sign of pulmonary embolus. There was some cardiomegaly and moderate size bilateral pleural effusions present, but no emboli. Thyroid scan was diffusely hypofunctioning consistent with Grave's disease, uptake 49% normal value up to 35%. Followup chest x-ray showed resolution of the interstitial edema and cardiomegaly. TSH was profound low at less than 0.007. T4 high at 5 for normal at 1.46 and free T3 high at 18, normal up to 4. Chemistry profile otherwise unremarkable. Cholesterol was very low at 124, LDL 68, HDL 43. The CBC was normal. The toxicology screen was negative. Urine was clear. HOSPITAL COURSE: He was treated with IV Cardizem and hypothyroidism was discovered and methimazole was added after thyroid scan was done confirming that this is Grave's disease and ____. His rate control was better with the addition of atenolol at higher dose, so he is still atrial fibrillation and has congestive heart failure symptoms have largely resolved and he is comfortable to be followed as an outpatient. FINAL DIAGNOSES: 1. Atrial fibrillation with rapid ventricular response secondary to Grave's disease, moderately severe. 2. Cardiomyopathy secondary to underlying chronotropic stress with congestive heart failure, resolved. OPERATIONS, PROCEDURES, AND COMPLICATIONS: None. CONSULTATIONS: Dr. Wilcox's group. DISPOSITION: He will take aspirin 81 mg daily as he cannot afford Eliquis. The CHADS2 score is low at 1 indicating relatively low short term risk and his atrial fibrillation can resolve with treatment of hypothyroid state. He will take Tapazole 10 mg t.i.d. for now. We will just based on thyroid function results. He will take atenolol 100 mg each morning for rate control. Activity as tolerated, low salt diet. Office followup in 1 week and then ongoing laboratory surveillance. BLAYNE ESCOBAR MD DR: LENIN/hanna JOB#: [id number] / [id number]
== END 2016-09-17 11:30 | disposition home or self-care (01) | DRG 643 ==
LOC: ER 12:06 → 1 WEST ICU 12:58 → 2 SOUTH 09-15 15:33
PROVIDERS: ADMIT Family Medicine; ATTEND Family Medicine
DX: E05.01 Thyrotoxicosis with diffuse goiter with thyrotoxic crisis or storm (principal); I50.41 Acute combined systolic (congestive) and diastolic (congestive) heart failure; I42.9 Cardiomyopathy, unspecified; I48.91 Unspecified atrial fibrillation; E03.9 Hypothyroidism, unspecified; I25.10 Atherosclerotic heart disease of native coronary artery without angina pectoris; I70.0 Atherosclerosis of aorta; F17.210 Nicotine dependence, cigarettes, uncomplicated; R59.1 Generalized enlarged lymph nodes; Z82.49 Family history of ischemic heart disease and other diseases of the circulatory system; Z83.3 Family history of diabetes mellitus
CPT/HCPCS: 36415; 71010; 71020; 71275; 78014; 80048; 80053; 80061; 81001; 83735; 83880; 84439; 84443; 84481; 84484; 85027; 85379; 85610; 87641; 93005; 93306; 96365; 96366; 96372; 96374; 96375; 96376; 99406; A9512; A9528; G0480; G0481; J1650; J1940; J3490; J7030; J7060; Q9967; 99291-25

== ENCOUNTER 2018-07-31 18:49 | Emergency (ER) | payer OTHER ==
[~2018-07-31] VITALS: Ht 180.3 cm; Wt 86.7 kg
[~2018-07-31 18:49] MED LIST: ATEN100T PO; METH-364 PO
--- NOTE | 2018-07-31 20:22 | PHYS DOC ---
Past Medical History Past Medical History: Hypothyroid Past Surgical History: No Surgical History Additional Information: 8-10 BLACK AND MILD CIGARS PER DAY Alcohol Use: Occasionally Drug Use: None Adult General Chief Complaint Chief Complaint: TESTICULAR PAIN OR INJURY [facility] Patient is a 57-year-old male who presents with report of right greater than left testicular swelling. 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 He states that he slipped and landed on step with his groin. Patient states that at that time it was quite painful but he states that since that time he has had no testicular pain. He does state that he came in tonight because he was concerned that swelling seems to be progressively getting worse. He denies any nausea or vomiting. He denies any urinary discomfort or hematuria. Review of Systems Review of Systems Constitutional: Denies fever or chills [] Respiratory: Denies cough or shortness of breath [] Cardiovascular: No additional information not addressed in [facility] [] GI: Denies abdominal pain, nausea, vomiting [] : Denies dysuria or hematuria. Positive testicular swelling [] Musculoskeletal: Denies back pain or joint pain [] Allergies Allergies Allergies Coded Allergies Type Severity Reaction Last Updated Verified No Known Drug Allergies 09/11/15 No Physical Exam Physical Exam Constitutional: Well developed, well nourished, no acute distress, non-toxic appearance. [] Neck: Normal range of motion, no tenderness, supple, no stridor. [] Cardiovascular: Regular rate and rhythm[] Lungs & Thorax: Bilateral breath sounds clear to auscultation [] Abdomen: Bowel sounds normal, soft, no tenderness. [] Extremities: No tenderness, no cyanosis, no clubbing, ROM intact, no edema. [] Neurologic: Alert and oriented X 3, normal motor function, normal sensory function, no focal deficits noted. [] : There is significant scrotal swelling with no reported tenderness and no ecchymosis. [] Current Patient Data Vital Signs Vital Signs Date Time Temp Pulse Resp B/P (MAP) Pulse Ox O2 Delivery O2 Flow Rate FiO2 07/31/18 20:48 84 16 142/86 (104) 98 Room Air 07/31/18 19:08 98.1 98.1 EKG EKG [] Radiology/Procedures Radiology/Procedures [] Impressions: Testicular ultrasound dated 07/31/2018. No comparison available. Clinical indication: Pain after injury. FINDINGS: Right testicle measures 4.5 x 3.5 x 2.3 cm. Left testicle measures 3.4 x 2.5 x 2.4 cm. No focal testicular mass. Normal color Doppler flow to both testicles. There is a large complex septated hydrocele on the right measuring up to 7.7 cm in size. No significant hydrocele on the left. No scrotal wall thickening. No significant varicocele. The epididymides are unremarkable. IMPRESSION: 1. Normal sonographic appearance of the testicles. 2. Large complex septated hydrocele on the right. Electronically signed by: Olaf June MD (07/31/2018 9:48 PM) Course & Med Decision Making Course & Med Decision Making Pertinent Labs and Imaging studies reviewed. (See chart for details) [] Dragon Disclaimer Dragon Disclaimer This electronic medical record was generated, in whole or in part, using a voice recognition dictation system. Departure Departure Impression: Primary Impression: Post-traumatic hydrocele Disposition: 01 HOME, SELF-CARE Condition: STABLE Referrals: BLAYNE ESCOBAR MD (PCP) JACQUIE WALKER MD Call tomorrow morning to schedule follow-up appointment with urologist. Patient Instructions: Hydrocele, , Scrotal Swelling DEJON BONNER Jr. DO Jul 31, 2018 20:22
--- NOTE | 2018-07-31 21:52 | RAD ---
Testicular ultrasound dated 07/31/2018. No comparison available. Clinical indication: Pain after injury. FINDINGS: Right testicle measures 4.5 x 3.5 x 2.3 cm. Left testicle measures 3.4 x 2.5 x 2.4 cm. No focal testicular mass. Normal color Doppler flow to both testicles. There is a large complex septated hydrocele on the right measuring up to 7.7 cm in size. No significant hydrocele on the left. No scrotal wall thickening. No significant varicocele. The epididymides are unremarkable. IMPRESSION: 1. Normal sonographic appearance of the testicles. 2. Large complex septated hydrocele on the right. Electronically signed by: Olaf June MD (07/31/2018 9:48 PM) [facility]
[2018-07-31 22:28] VITALS: BP 140/86
== END 2018-07-31 22:30 | disposition home or self-care (01) ==
LOC: ER 18:49
DX: N43.2 Other hydrocele (principal); G89.11 Acute pain due to trauma; E03.9 Hypothyroidism, unspecified; F17.210 Nicotine dependence, cigarettes, uncomplicated; W01.0XXA Fall on same level from slipping, tripping and stumbling without subsequent striking against object, initial encounter; Y93.89 Activity, other specified; Y92.69 Other specified industrial and construction area as the place of occurrence of the external cause; Y99.0 Civilian activity done for income or pay
CPT/HCPCS: 76870; 99284-25

== ENCOUNTER 2019-11-06 07:51 | Inpatient (IN) | payer OTHER ==
[~2019-11-06] VITALS: Ht 172.7 cm; Wt 89.0 kg
[2019-11-06] MEDS ORDERED: IV NORMAL SALINE 1000ML BAG 1,000 ML IV SCH (08:18)
--- NOTE | 2019-11-06 08:24 | PHYS DOC ---
Past Medical History Past Medical History: Hypothyroid Past Surgical History: No Surgical History Smoking Status: Current Every Day Smoker Additional Information: 8 cigars daily Alcohol Use: Rarely Drug Use: None Adult General Chief Complaint Chief Complaint: TESTICULAR PAIN OR INJURY HPI HPI Patient is a 59 year old male who presents with complaint of right sided testicular pain and swelling. Patient states that he has had swelling in the right testicle for quite some time but it has never been painful. He states that when he woke up this morning, the swelling was worse the pain was quite severe. He rates pain at a 10 out of 10. He denies any vomiting or diarrhea. He denies any fever. He denies any recent injury/trauma.[] Review of Systems Review of Systems Constitutional: Denies fever or chills [] Respiratory: Denies cough or shortness of breath [] Cardiovascular: No additional information not addressed in HPI [] GI: Denies abdominal pain, nausea, vomiting or diarrhea [] : Complains of right testicular pain and swelling[] Integument: Denies rash or skin lesions [] All other systems were reviewed and found to be within normal limits, except as documented in this note. Current Medications Current Medications Current Medications Medications (Trade) Dose Ordered Sig/Kaetlyn Start Time Stop Time Status Last Admin Dose Admin Fentanyl Citrate (Fentanyl 2ml Vial) 50 mcg PRN Q15MIN PRN 11/06/19 08:30 11/07/19 08:29 11/06/19 08:38 50 MCG Info (CONTRAST GIVEN -- Rx MONITORING) 1 each PRN DAILY PRN 11/06/19 10:30 11/08/19 10:29 Iohexol (Omnipaque 300 Mg/ml) 75 ml 1X ONCE 11/06/19 10:30 11/06/19 10:31 DC 11/06/19 10:53 75 ML Ondansetron HCl (Zofran) 4 mg 1X ONCE 11/06/19 08:30 11/06/19 08:31 DC 11/06/19 08:37 4 MG Sodium Chloride 1,000 ml @ 1,000 mls/hr Q1H 11/06/19 08:18 11/06/19 09:17 DC 11/06/19 08:34 1,000 MLS/HR Allergies Allergies Allergies Coded Allergies Type Severity Reaction Last Updated Verified No Known Drug Allergies 09/11/15 No Physical Exam Physical Exam Constitutional: Well developed, well nourished, no acute distress, non-toxic appearance. [] HENT: Normocephalic, atraumatic, bilateral external ears normal, oropharynx moist, no oral exudates, nose normal. [] Eyes: PERRLA, EOMI, conjunctiva normal, no discharge. [] Neck: Normal range of motion, no tenderness, supple, no stridor. [] Cardiovascular:Heart rate regular rhythm, no murmur [] Lungs & Thorax: Bilateral breath sounds clear to auscultation [] Abdomen: Bowel sounds normal, soft, no tenderness. [] Skin: Warm, dry, no erythema, no rash. [] : Examination of male genitalia demonstrates normal-appearing penis. Right testicle/scrotum is markedly swollen with scrotal redness and tenderness. [] Extremities: No tenderness, no cyanosis, no clubbing, ROM intact, no edema. [] Neurologic: Alert and oriented X 3, normal motor function, normal sensory function, no focal deficits noted. [] Current Patient Data Vital Signs Vital Signs Date Time Temp Pulse Resp B/P (MAP) Pulse Ox O2 Delivery O2 Flow Rate FiO2 11/06/19 10:33 73 18 134/73 (93) 95 Room Air 11/06/19 08:09 98.2 98.2 Lab Values Laboratory Tests Test 11/06/19 08:50 11/06/19 10:50 White Blood Count 6.2 x10^3/uL (4.0-11.0) Red Blood Count 5.03 x10^6/uL (4.30-5.70) Hemoglobin 16.2 g/dL (13.0-17.5) Hematocrit 47.2 % (39.0-53.0) Mean Corpuscular Volume 94 fL (79-100) Mean Corpuscular Hemoglobin 32 pg (25-35) Mean Corpuscular Hemoglobin Concent 34 g/dL (31-37) Red Cell Distribution Width 14.6 % (11.5-14.5) H Platelet Count 186 x10^3/uL (140-400) Neutrophils (%) (Auto) 65 % (31-73) Lymphocytes (%) (Auto) 25 % (24-48) Monocytes (%) (Auto) 8 % (0-9) Eosinophils (%) (Auto) 2 % (0-3) Basophils (%) (Auto) 1 % (0-3) Neutrophils # (Auto) 4.0 x10^3/uL (1.8-7.7) Lymphocytes # (Auto) 1.5 x10^3/uL (1.0-4.8) Monocytes # (Auto) 0.5 x10^3/uL (0.0-1.1) Eosinophils # (Auto) 0.1 x10^3/uL (0.0-0.7) Basophils # (Auto) 0.0 x10^3/uL (0.0-0.2) Sodium Level 140 mmol/L (136-145) Potassium Level 4.0 mmol/L (3.5-5.1) Chloride Level 104 mmol/L (98-107) Carbon Dioxide Level 25 mmol/L (21-32) Anion Gap 11 (6-14) Blood Urea Nitrogen 9 mg/dL (8-26) Creatinine 1.0 mg/dL (0.7-1.3) Estimated GFR (Cockcroft-Gault) 76.2 BUN/Creatinine Ratio 9 (6-20) Glucose Level 169 mg/dL (70-99) H Calcium Level 8.2 mg/dL (8.5-10.1) L Total Bilirubin 0.4 mg/dL (0.2-1.0) Aspartate Amino Transferase (AST) 29 U/L (15-37) Alanine Aminotransferase (ALT) 30 U/L (16-63) Alkaline Phosphatase 70 U/L (46-116) Total Protein 6.6 g/dL (6.4-8.2) Albumin 3.5 g/dL (3.4-5.0) Albumin/Globulin Ratio 1.1 (1.0-1.7) Urine Color Yellow Urine Clarity Clear Urine pH 5.5 (<5.0-8.0) Urine Specific [place] >=1.030 (1.000-1.030) Urine Protein Negative mg/dL (NEG-TRACE) Urine Glucose (UA) Negative mg/dL (NEG) Urine Ketones (Stick) Negative mg/dL (NEG) Urine Blood Negative (NEG) Urine Nitrite Negative (NEG) Urine Bilirubin Negative (NEG) Urine Urobilinogen Dipstick 0.2 mg/dL (0.2 mg/dL) Urine Leukocyte Esterase Negative (NEG) Urine RBC Rare /HPF (0-2) Urine WBC 0 /HPF (0-4) Urine Squamous Epithelial Cells Few /LPF Urine Bacteria 0 /HPF (0-FEW) Urine Mucus Marked /LPF Laboratory Tests 11/06/19 08:50 Laboratory Tests 11/06/19 08:50 EKG EKG [] Radiology/Procedures Radiology/Procedures [] Impressions: PROCEDURE: CT ABD PELV W/ IV CONTRST ONLY CT abdomen and pelvis with contrast PQRS statement: CT scans at this facility use dose reduction including either automated exposure control, iterative reconstructions, and /or weight based radiation dosing via mA and kV modification when appropriate to reduce radiation dose to as low as reasonably achievable. Contrast: 75 mL Omnipaque 300 intravenous contrast. HISTORY: Right lower quadrant abdominal pain, right groin pain. Abdomen findings: Extensive heterogeneous opacities of the bilateral posterior lower lobes as well as the inferior lingula. Left lower lobe calcified granulomas. 2 cm fatty umbilical abdominal wall hernia. Lumbar disc disease. Calcified granulomas of the spleen. Liver, gallbladder, pancreas, adrenal glands and kidneys are unremarkable. At the distal sigmoid colon there is a 5 cm in length segment of luminal collapse and circumferential wall thickening with mild surrounding edema. There are scattered sigmoid diverticuli no discrete perforated diverticulum present. Moderate volume stool within the colon. Appendix is negative. Aortoiliac calcified plaque. No abdominal fluid or enlarged adenopathy. Pelvis findings: Bladder, prostate, rectum and bones are unremarkable. There is a large right hydrocele. IMPRESSION: 1. 5 cm segment of the distal sigmoid colon demonstrates circumferential wall thickening with obliteration of the lumen and mild surrounding edema. This is most concerning for colonic malignancy. Sigmoid diverticulitis would be a secondary a consideration although given no obvious perforated diverticulum and the limited degree of edema relative to the bulky nature of wall thickening, malignancy is of primary concern. 2. The appendix is negative. 3. Heterogeneous opacities of the lung bases could represent extensive atelectasis although an infectious or inflammatory process is not excluded. 4. Large right hydrocele of the scrotum. Electronically signed by: Demi Harris MD (11/06/2019 11:03 AM) [id number] DICTATED and SIGNED BY: DEMI HARRIS MD DATE: 11/06/19 1103 Course & Med Decision Making Course & Med Decision Making Pertinent Labs and Imaging studies reviewed. (See chart for details) [] Dragon Disclaimer Dragon Disclaimer This electronic medical record was generated, in whole or in part, using a voice recognition dictation system. Departure Departure Impression: Primary Impression: Colonic mass Additional Impression: Hydrocele in adult Disposition: 09 ADMITTED INPATIENT Admitting Physician: Blayne Escobar Condition: IMPROVED Referrals: BLAYNE ESCOBAR MD (PCP) Problem Qualifiers DEJON BONNER Jr. DO Nov 06, 2019 08:24
[2019-11-06] MEDS ORDERED: fentaNYL PF VIAL 100 MCG/2 ML VIAL IV PRN (08:30)
[2019-11-06] MEDS ORDERED: ONDANSETRON PF 4 MG/2 ML VIAL. IVP ONE (08:30)
[2019-11-06 09:07] LABS: CALCIUM 8.2 mg/dL (8.5-10.1); GFR 76.2
[2019-11-06 09:13] LABS: ALBUMIN 3.5 g/dL (3.4-5.0); ALBUMIN/GLOBULIN RATIO 1.1 (1.0-1.7); BASO % 1 % (0-3); EOS # 0.1 x10^3/uL (0.0-0.7); EOS % 2 % (0-3); HEMATOCRIT 47.2 % (39.0-53.0); HEMOGLOBIN 16.2 g/dL (13.0-17.5); LYMPH # 1.5 x10^3/uL (1.0-4.8); LYMPH % 25 % (24-48); MEAN CORPUSCULAR HEMOGLOBIN 32 pg (25-35); MEAN CORPUSCULAR HGB CONC 34 g/dL (31-37); MEAN CORPUSCULAR VOLUME 94 fL (79-100); MONO # 0.5 x10^3/uL (0.0-1.1); MONO % 8 % (0-9); NEUT % 65 % (31-73); PLATELET COUNT 186 x10^3/uL (140-400); RED BLOOD COUNT 5.03 x10^6/uL (4.30-5.70); RED CELL DISTRIBUTION WIDTH 14.6 % (11.5-14.5); TOTAL BILIRUBIN 0.4 mg/dL (0.2-1.0); TOTAL PROTEIN 6.6 g/dL (6.4-8.2); WHITE BLOOD COUNT 6.2 x10^3/uL (4.0-11.0)
--- NOTE | 2019-11-06 09:31 | RAD ---
TESTICULAR/SCROTUM History: Right scrotal pain and swelling. Realtime ultrasonography of the scrotum was performed. Comparison: None. Right intratesticular cysts measuring 0.3 cm and 0.6 cm. Left epididymal head cyst measuring 0.5 cm. Normal symmetric vascularity of the testes and epididymides. The right testicle measures 4.4 x 3.2 x 2.6 cm. The left testicle measures 4.1 x 3.1 x 2.2 cm. Large right hydrocele with septations and debris measuring 11.0 x 7.3 x 7.5 cm. Impression: 1. Large right complex hydrocele, which could be sterile or infected. 2. Normal symmetric vascularity of the testes. Electronically signed by: Arsenio Jackson MD (11/06/2019 9:28 AM) [id number]
[2019-11-06] MEDS ORDERED: CONTRAST GIVEN. MC PRN (10:30)
[2019-11-06] MEDS ORDERED: IOHEXOL 300 MG/ML 100ML VIAL. IV ONE (10:30)
--- NOTE | 2019-11-06 11:06 | RAD ---
CT abdomen and pelvis with contrast PQRS statement: CT scans at this facility use dose reduction including either automated exposure control, iterative reconstructions, and /or weight based radiation dosing via mA and kV modification when appropriate to reduce radiation dose to as low as reasonably achievable. Contrast: 75 mL Omnipaque 300 intravenous contrast. HISTORY: Right lower quadrant abdominal pain, right groin pain. Abdomen findings: Extensive heterogeneous opacities of the bilateral posterior lower lobes as well as the inferior lingula. Left lower lobe calcified granulomas. 2 cm fatty umbilical abdominal wall hernia. Lumbar disc disease. Calcified granulomas of the spleen. Liver, gallbladder, pancreas, adrenal glands and kidneys are unremarkable. At the distal sigmoid colon there is a 5 cm in length segment of luminal collapse and circumferential wall thickening with mild surrounding edema. There are scattered sigmoid diverticuli no discrete perforated diverticulum present. Moderate volume stool within the colon. Appendix is negative. Aortoiliac calcified plaque. No abdominal fluid or enlarged adenopathy. Pelvis findings: Bladder, prostate, rectum and bones are unremarkable. There is a large right hydrocele. IMPRESSION: 1. 5 cm segment of the distal sigmoid colon demonstrates circumferential wall thickening with obliteration of the lumen and mild surrounding edema. This is most concerning for colonic malignancy. Sigmoid diverticulitis would be a secondary a consideration although given no obvious perforated diverticulum and the limited degree of edema relative to the bulky nature of wall thickening, malignancy is of primary concern. 2. The appendix is negative. 3. Heterogeneous opacities of the lung bases could represent extensive atelectasis although an infectious or inflammatory process is not excluded. 4. Large right hydrocele of the scrotum. Electronically signed by: Luis Armando Harris MD (11/06/2019 11:03 AM) [id number]
[2019-11-06 11:12] LABS: BILIRUBIN,URINE NEGATIVE (NEG); CLARITY,URINE CLEAR; COLOR,URINE YELLOW; NITRITE,URINE NEGATIVE (NEG); PH,URINE 5.5 (<5.0-8.0); PROTEIN,URINE NEGATIVE (NEG-TRACE); UROBILINOGEN,URINE 0.2 mg/dL (0.2 mg/dL)
[2019-11-06 11:36] LABS: RBC,URINE RARE /HPF (0-2)
[2019-11-06 11:37] LABS: BACTERIA,URINE 0 /HPF (0-FEW); SQUAMOUS EPITHELIAL CELL,UR FEW /LPF; WBC,URINE 0 /HPF (0-4)
[2019-11-06] MEDS ORDERED: MORPHINE SULFATE 4 MG/ML VIAL. IV PRN (12:15)
[2019-11-06] MEDS ORDERED: ONDANSETRON PF 4 MG/2 ML VIAL. IV PRN (12:15)
--- NOTE | 2019-11-06 14:32 | PDOC2 ---
GI CONSULT Reason For Consult: colon mass HPI: HPI: 59 y/o male see in ER, daughter present who says he has been a little loopy since she arrived. To ER today w/ known hydrocele and past urology eval, now getting bigger and more painful. Denies reflux/heartburn, dysphagia/odynophagia, n/v, diarrhea, constipation, h ematochezia, melena, and weight loss. Might have occasional "middle" abdominal discomfort. No previous EGD or colonoscopy. No GB, liver, pancreas, or PUD history. ASA 81mg daily, rarely other NSAIDs. H/o Graves' - says he's had some MRIs recently, issues with not being able to use some of his fingers. PMH: PMH: per chart/pt - A Fib, ?CHF, CAD, COPD, Graves' FH: Family History: No pertinent hx (denies GI cancers) Social History: Smoke: <1 pack per day (cigars) ALCOHOL: rare Drugs: None ROS: GEN: Denies fevers, chills, sweats HEENT: Denies blurred vision, sore throat CV: Denies chest pain RESP: Denies shortness of air, cough GI: Per HPI : Denies hematuria, dysuria ENDO: Denies weight changes NEURO: Denies confusion, dizziness MSK: Denies weakness, joint pain/swelling SKIN: Denies jaundice, pruritus Vitals: Vitals: Vital Signs Date Time Temp Pulse Resp B/P (MAP) Pulse Ox O2 Delivery O2 Flow Rate FiO2 11/06/19 13:56 70 16 128/79 (95) 96 Room Air 11/06/19 08:09 98.2 98.2 Labs: Labs: Laboratory Tests Test 11/06/19 08:50 11/06/19 10:50 White Blood Count 6.2 x10^3/uL (4.0-11.0) Red Blood Count 5.03 x10^6/uL (4.30-5.70) Hemoglobin 16.2 g/dL (13.0-17.5) Hematocrit 47.2 % (39.0-53.0) Mean Corpuscular Volume 94 fL (79-100) Mean Corpuscular Hemoglobin 32 pg (25-35) Mean Corpuscular Hemoglobin Concent 34 g/dL (31-37) Red Cell Distribution Width 14.6 % (11.5-14.5) Platelet Count 186 x10^3/uL (140-400) Neutrophils (%) (Auto) 65 % (31-73) Lymphocytes (%) (Auto) 25 % (24-48) Monocytes (%) (Auto) 8 % (0-9) Eosinophils (%) (Auto) 2 % (0-3) Basophils (%) (Auto) 1 % (0-3) Neutrophils # (Auto) 4.0 x10^3/uL (1.8-7.7) Lymphocytes # (Auto) 1.5 x10^3/uL (1.0-4.8) Monocytes # (Auto) 0.5 x10^3/uL (0.0-1.1) Eosinophils # (Auto) 0.1 x10^3/uL (0.0-0.7) Basophils # (Auto) 0.0 x10^3/uL (0.0-0.2) Sodium Level 140 mmol/L (136-145) Potassium Level 4.0 mmol/L (3.5-5.1) Chloride Level 104 mmol/L (98-107) Carbon Dioxide Level 25 mmol/L (21-32) Anion Gap 11 (6-14) Blood Urea Nitrogen 9 mg/dL (8-26) Creatinine 1.0 mg/dL (0.7-1.3) Estimated GFR (Cockcroft-Gault) 76.2 BUN/Creatinine Ratio 9 (6-20) Glucose Level 169 mg/dL (70-99) Calcium Level 8.2 mg/dL (8.5-10.1) Total Bilirubin 0.4 mg/dL (0.2-1.0) Aspartate Amino Transf (AST/SGOT) 29 U/L (15-37) Alanine Aminotransferase (ALT/SGPT) 30 U/L (16-63) Alkaline Phosphatase 70 U/L (46-116) Total Protein 6.6 g/dL (6.4-8.2) Albumin 3.5 g/dL (3.4-5.0) Albumin/Globulin Ratio 1.1 (1.0-1.7) Urine Color Yellow Urine Clarity Clear Urine pH 5.5 (<5.0-8.0) Urine Specific [place] >=1.030 (1.000-1.030) Urine Protein Negative mg/dL (NEG-TRACE) Urine Glucose (UA) Negative mg/dL (NEG) Urine Ketones (Stick) Negative mg/dL (NEG) Urine Blood Negative (NEG) Urine Nitrite Negative (NEG) Urine Bilirubin Negative (NEG) Urine Urobilinogen Dipstick 0.2 mg/dL (0.2 mg/dL) Urine Leukocyte Esterase Negative (NEG) Urine RBC Rare /HPF (0-2) Urine WBC 0 /HPF (0-4) Urine Squamous Epithelial Cells Few /LPF Urine Bacteria 0 /HPF (0-FEW) Urine Mucus Marked /LPF Allergies: Coded Allergies: No Known Drug Allergies (Unverified , 09/11/15) Medications: Current Medications Medications (Trade) Dose Ordered Sig/Katelyn Route PRN Reason Start Time Stop Time Status Last Admin Dose Admin Fentanyl Citrate (Fentanyl 2ml Vial) 50 mcg PRN Q15MIN PRN IV PAIN GREATER THAN 10/3011/06/19 08:30 11/07/19 08:29 11/06/19 08:38 Sodium Chloride 1,000 ml @ 1,000 mls/hr Q1H IV 11/06/19 08:18 11/06/19 09:17 DC 11/06/19 08:34 Ondansetron HCl (Zofran) 4 mg 1X ONCE IVP 11/06/19 08:30 11/06/19 08:31 DC 11/06/19 08:37 Iohexol (Omnipaque 300 Mg/ml) 75 ml 1X ONCE IV 11/06/19 10:30 11/06/19 10:31 DC 11/06/19 10:53 Imaging: Imaging: US Impression: 1. Large right complex hydrocele, which could be sterile or infected. 2. Normal symmetric vascularity of the testes. CT A/P IMPRESSION: 1. 5 cm segment of the distal sigmoid colon demonstrates circumferential wall thickening with obliteration of the lumen and mild surrounding edema. This is most concerning for colonic malignancy. Sigmoid diverticulitis would be a secondary a consideration although given no obvious perforated diverticulum and the limited degree of edema relative to the bulky nature of wall thickening, malignancy is of primary concern. 2. The appendix is negative. 3. Heterogeneous opacities of the lung bases could represent extensive atelectasis although an infectious or inflammatory process is not excluded. 4. Large right hydrocele of the scrotum. PE: GEN: NAD HEENT: Atraumatic, PERRL LUNGS: CTAB HEART: RRR ABD: NABS, S/ND/NT, large hydrocele EXTREMITY: No edema SKIN: No rashes, no jaundice NEURO/PSYCH: A & O 3 A/P: A/P: Right hydrocele - complex on imaging as above Abnormal CT - 5 cm segment of wall thickening in distal sigmoid concerning for malignancy vs diverticulitis CRC screen - none Graves -- Address hydrocele, then plan for colonoscopy for screening and further eval of CT findings, could possibly be done as outpt. MIGUEL MOISE Nov 06, 2019 14:32
[2019-11-06 15:00] VITALS: BP 146/81
[2019-11-06] MEDS ORDERED: ASPI81TA50 PO (16:00)
[2019-11-06 19:00] VITALS: BP 129/78
[2019-11-06 20:33] VITALS: BP 129/78
[2019-11-06 23:23] VITALS: BP 116/74
[2019-11-07 03:43] VITALS: BP 116/74
[2019-11-07 04:40] LABS: BASO # 0.1 x10^3/uL (0.0-0.2); BASO % 1 % (0-3); EOS # 0.2 x10^3/uL (0.0-0.7); EOS % 3 % (0-3); HEMATOCRIT 46.5 % (39.0-53.0); HEMOGLOBIN 15.8 g/dL (13.0-17.5); LYMPH # 2.1 x10^3/uL (1.0-4.8); LYMPH % 33 % (24-48); MEAN CORPUSCULAR HEMOGLOBIN 32 pg (25-35); MEAN CORPUSCULAR HGB CONC 34 g/dL (31-37); MEAN CORPUSCULAR VOLUME 94 fL (79-100); MONO # 0.5 x10^3/uL (0.0-1.1); MONO % 8 % (0-9); NEUT # 3.6 x10^3/uL (1.8-7.7); NEUT % 56 % (31-73); PLATELET COUNT 174 x10^3/uL (140-400); RED BLOOD COUNT 4.92 x10^6/uL (4.30-5.70); RED CELL DISTRIBUTION WIDTH 14.6 % (11.5-14.5); WHITE BLOOD COUNT 6.4 x10^3/uL (4.0-11.0)
[2019-11-07 04:59] LABS: ALBUMIN 3.1 g/dL (3.4-5.0); ALBUMIN/GLOBULIN RATIO 1.1 (1.0-1.7); CREATININE 0.9 mg/dL (0.7-1.3); GFR 86.1; POTASSIUM 4.1 mmol/L (3.5-5.1); TOTAL BILIRUBIN 0.7 mg/dL (0.2-1.0); TOTAL PROTEIN 5.8 g/dL (6.4-8.2)
[2019-11-07 07:00] VITALS: BP 112/69
[2019-11-07] MEDS ORDERED: methIMAzole 10 MG TABLET PO SCH (09:00)
--- NOTE | 2019-11-07 09:05 | PDOC ---
Provider Note Provider Note [id number] BLAYNE ESCOBAR MD Nov 07, 2019 09:05
--- NOTE | 2019-11-07 09:36 | NUR ---
SW following. Discussed with RN, pt from home alone. RN anticipates possible discharge home today. RN advised no SW needs.
[2019-11-07 11:00] VITALS: BP 131/83
--- NOTE | 2019-11-07 11:52 | HP ---
ADMIT DATE: 11/06/2019 CHIEF COMPLAINT: Scrotal pain. HISTORY OF PRESENT ILLNESS: A 59-year-old white male known to me as Graves' disease patient, who has had a hydrocele present for about a year after injury and has had increasing pain with increasing swelling lately. Sonogram confirmed the hydrocele. CT scan the same, except it showed a suspicious lesion in the sigmoid colon suspicious for neoplasm. He has not had a colonoscopy to this point and GI consultations have been obtained. He denies any symptoms of left lower quadrant abdominal pain, bowel symptoms, weight loss, or other complaints referable to his stomach. PAST MEDICAL HISTORY: He is on methimazole for Graves' disease. He is in the process of trying to arrange radioiodine therapy as his medication control has been difficult and the symptoms persistent. MEDICATIONS: No other meds or allergies. SOCIAL HISTORY: Nonsmoker, employed, nondrinker, . FAMILY HISTORY: Unremarkable. REVIEW OF SYSTEMS: No other complaints. OBJECTIVE: ENT: All within normal limits. NECK: No masses, thyroid enlargement, or bruits. LUNGS: Clear. CARDIOVASCULAR: Regular rate. No murmur. ABDOMEN: Benign, soft. No masses or tenderness in the left lower quadrant. GENITOURINARY: A large right hydrocele, which transilluminates. Left testicle is normal. EXTREMITIES: Unremarkable. ASSESSMENT: 1. Scrotal pain secondary to large right-sided hydrocele. 2. Left lower quadrant lesion on the sigmoid colon on CT suspicious for primary colonic neoplasm. 3. Graves' disease ____ medical therapy. 4. Ongoing right arm pain, etiology undetermined. PLAN: GI consultation to see if a colonoscopy can be obtained as to make a diagnosis. Urology consultation not available at this time. BLAYNE ESCOBAR MD DR: LENIN/hanna JOB#: [id number] / [id number]
--- NOTE | 2019-11-07 12:42 | PDOC ---
Subjective: Subjective: Wants to go home because urology not available here, etc. Still without GI complaints. Objective: Objective: D/w nurse. Vital Signs: Vital Signs Date Time Temp Pulse Resp B/P (MAP) Pulse Ox O2 Delivery O2 Flow Rate FiO2 11/07/19 11:00 97.6 64 16 131/83 (99) 96 Room Air 97.6 PE: GEN: NAD, sitting on edge of bed LUNGS: diminished HEART: RRR ABD: S/ND/NT NEURO/PSYCH: A & O 3 A/P: Complex right hydrocele Distal sigmoid thickening -- DC per primary. Our office will contact to schedule colonoscopy when hydrocele issues resolved. Hemodynamically unstable?: No Is patient in severe pain?: No Is NPO status required?: No MIGUEL MOISE Nov 07, 2019 12:42
--- NOTE | 2019-11-07 12:47 | NUR ---
Discharge instructions and belongings reviewed with patient, verbalized understanding. Patient was escorted out via ambulation by Elayne SOFIA
--- NOTE | 2019-11-07 13:03 | DS ---
DATE OF DISCHARGE: 11/07/2019 HOSPITAL SUMMARY: The patient was admitted with a right-sided hydrocele. It is ongoing, but CT scan showed evidence of a colonic lesion in the left colon, suspicious for malignancy. Laboratory studies were unremarkable and GI saw him and plans endoscopy as an outpatient, so he is capable of being discharged and followed at that point. FINAL DIAGNOSES: 1. Right-sided hydrocele. 2. Colonic lesions, suspicious for colonic neoplasm. 3. Graves' disease, under treatment. OPERATIONS, PROCEDURES, COMPLICATIONS: None. CONSULTATIONS: Sriram Ramos MD DISPOSITION: Endoscopy per Dr. Ramos. He will see urologist as an outpatient and follow up with our office regarding his Graves' disease. BLAYNE ESCOBAR MD DR: LENIN/nts JOB#: [id number] / [id number]
== END 2019-11-07 12:57 | disposition home or self-care (01) | DRG 729 ==
LOC: ER 07:51 → 4 NORTH 12:11
PROVIDERS: ADMIT Family Medicine; ATTEND Family Medicine
DX: N43.3 Hydrocele, unspecified (principal); C18.9 Malignant neoplasm of colon, unspecified; E05.00 Thyrotoxicosis with diffuse goiter without thyrotoxic crisis or storm; E03.9 Hypothyroidism, unspecified; F17.210 Nicotine dependence, cigarettes, uncomplicated; I25.10 Atherosclerotic heart disease of native coronary artery without angina pectoris; I48.91 Unspecified atrial fibrillation; I50.9 Heart failure, unspecified; J44.9 Chronic obstructive pulmonary disease, unspecified; K63.9 Disease of intestine, unspecified; Z79.82 Long term (current) use of aspirin
CPT/HCPCS: 36415; 74177; 76870; 80053; 81001; 85025; 96374; 96375; J2405; J3010; J7030; Q9967; 99285-25; G0378

== ENCOUNTER → 2019-12-20 | Outpatient (CLI) | payer OTHER ==
[~2019-12-20] MED LIST changes: +ASPI81TA50 PO; +IOHEXOL 300 MG/ML 50 ML VIAL. IJ ONE
[2019-12-20 10:40] VITALS: BP 118/78
[2019-12-20 10:44] VITALS: BP 118/78
[2019-12-20 11:00] VITALS: BP 119/75
--- NOTE | 2019-12-20 11:00 | NUR ---
pt here for Myelogram, completed required recovery time in CVBOS lying flat. VSS, able to tolerate PO. Escorted out per wheelchair, family here to drive pt. DC instructions provided and questions answered, disk provided to pt. SAMMIE EMANUEL
--- NOTE | 2019-12-20 13:38 | RAD ---
EXAM: CT Cervical Spine with intrathecal contrast INDICATION: Right arm weakness and limited range of motion. TECHNIQUE: Multi-detector row CT images were obtained through the cervical spine without the use of IV contrast. In an earlier same day procedure, 12 mL of Omnipaque 300 was administered intrathecally. Post-processing sagittal and coronal reconstructed images were obtained for interpretation. All CT scans performed at this facility utilize dose optimization techniques as appropriate to the exam, including the following: Automated exposure control and adjustment of the mA and/or KV according to patient size (this includes techniques or standardized protocols for targeted exams where dose is indication/reason for exam). COMPARISON: Cervical myelogram performed earlier the same day. FINDINGS: CRANIOCERVICAL JUNCTION: Unremarkable. Visualized intracranial structures are unremarkable as well.. ALIGNMENT: Alignment shows mild straightening of the cervical spine without listhesis. OSSEOUS: Sclerosis at C5 and C6 are related to extensive degenerative changes also evident conspicuously in the left C3-C4 facet joint DISC SPACES: The C1-C2, C2-C3 and C7-T1 levels are unremarkable. At C3-C4, mild disc loss of height and early disc desiccation is present, resulting in no significant central canal stenosis. Left-sided facet hypertrophy along with uncovertebral hypertrophy results in moderate left foraminal stenosis. The central canal is patent measuring 11 mm AP diameter. The right foramen is patent. At C4-C5 disc osteophyte complex with mild bilateral uncovertebral hypertrophy, left greater than right along with left-sided facet hypertrophy results in no significant central canal stenosis of the central canal measuring 11 mm AP diameter and mild bilateral foraminal narrowing. At C5-C6, bulky disc osteophyte complex with marked narrowing of the disc space and bilateral uncovertebral hypertrophy results in flattening of the thecal sac to an AP diameter of 8 mm mild flattening of the ventral cervical cord. There is severe right greater than left bilateral foraminal narrowing. At C6-C7, disc osteophyte complex with marked disc space narrowing and endplate uncovertebral hypertrophy results in central canal narrowing to 7 mm AP diameter with significant effacement of the CSF signal around the cervical cord. There is moderate right greater than left bilateral foraminal stenosis. SOFT TISSUES: Partially imaged thyroid gland appears diffusely enlarged and isodense to muscle (rather than the normal hyperdensity related to physiologic iodine concentration). IMPRESSION: 1. Multilevel cervical degenerative spondylosis with varying degrees of central canal and foraminal stenosis as discussed. 2. Thyromegaly with hypoattenuation. Recommend correlation with thyroid function tests and consider correlation with ultrasound on an elective basis. Electronically signed by: Joan Bay MD (12/20/2019 1:35 PM) [id number]
--- NOTE | 2019-12-20 13:54 | RAD ---
Cervical myelogram INDICATION: Cervical radiculopathy. Right arm weakness and limited range of motion. COMPARISON: CT cervical spine with intrathecal contrast of the same day TECHNIQUE: Informed consent was obtained and an appropriate procedural pause observed. Standard sterile technique, fluoroscopic imaging guidance and local anesthesia with 1 mL of 1 percent lidocaine was utilized in directing a 22-gauge spinal needle from a left L2-L3 interlaminar approach into the central canal and 12 mL of Omnipaque 300 were administered into the thecal sac in the lumbar subarachnoid space. Patient was subsequently positioned to allow the contrast migration to the cervical spine after which AP, bilateral oblique, crosstable neutral lateral and lateral flexion and extension views of the cervical spine were obtained. A total of 10 images were acquired for procedural documentation and total fluoroscopy time was 1.1 minutes. FINDINGS: Successful administration of contrast material into the thecal sac and transported to the cervical canal. High-grade central canal stenosis is not demonstrated on this exam. No abnormal motion with flexion or extension although the cervical spine is only well visualized down to the C3-C4 level due to overlap with the patient's upper chest soft tissues. Patient was subsequently transported to the CT imaging suite for additional imaging in stable condition. IMPRESSION: Successful intrathecal contrast administration for cervical CT myelography. No high-grade central canal stenosis demonstrated on this examination and no evidence of abnormal motion in the upper cervical spine. Please see the same day CT cervical spine with intrathecal contrast report for additional details. Electronically signed by: Joan Bay MD (12/20/2019 1:51 PM) [id number]
== END | disposition home or self-care (01) ==
LOC: RAD 08:15
PROVIDERS: ATTEND Neurological Surgery
DX: M47.812 Spondylosis without myelopathy or radiculopathy, cervical region (principal); M48.02 Spinal stenosis, cervical region; E01.0 Iodine-deficiency related diffuse (endemic) goiter; M25.78 Osteophyte, vertebrae; R53.1 Weakness
CPT/HCPCS: 72126; 72240; Q9967